=== PATIENT | male | born 1975 | race Caucasian/White ===

== ENCOUNTER 2016-10-23 23:49 | Inpatient (IN) | payer MEDICAID ==
[~2016-10-23] VITALS: Ht 195.6 cm; Wt 69.0 kg
[2016-10-24] VITALS (18 sets, daily range): BP systolic 102–117; BP diastolic 72–82; PULSE 56–77; RESP 9–21; TEMP 98.9; Ht 195.6 cm; Wt 69.0 kg
[2016-10-24] MEDS ORDERED: SOD CHLORIDE 0.9% 1,000 ML IV STA (02:35)
[2016-10-24] MEDS ORDERED: morphine 2 MG INJ IV STA (02:35)
[2016-10-24] MEDS ORDERED: ONDANSETRON 4 MG INJ IV STA (02:35)
[2016-10-24 03:22] LABS: ABNORMAL IP MESSAGE 1; BASOPHILS % 0.5 % (0.0-2.0); EOSINOPHILS # 0.1 10^3/ul (0.0-0.5); EOSINOPHILS % 1.3 % (0.0-7.0); HEMATOCRIT 45.9 % (42.0-52.0); LYMPHOCYTES # 2.5 10^3/ul (0.8-2.9); LYMPHOCYTES % 30.2 % (15.0-51.0); MEAN CORPUSCULAR HGB CONC 34.9 g/dl (32.0-37.0); MEAN CORPUSCULAR VOLUME 83.2 fl (82.0-101.0); MEAN PLATELET VOLUME 13.7 fl (7.4-10.4); MONOCYTE # 0.6 10^3/ul (0.3-0.9); NEUTROPHILS % 60.5 % (39.0-77.0); PLATELET COUNT 189 10^3/UL (140-415); POSITIVE DIFF @See below; RED BLOOD COUNT 5.52 10^6/ul (4.70-6.10); RED CELL DISTRIBUTION WIDTH 12.3 % (11.5-14.5); WHITE BLOOD COUNT 8.2 10^3/ul (4.8-10.8)
[2016-10-24 03:29] LABS: ADD UMIC NO; UR ASCORBIC ACID NEGATIVE (NEGATIVE); UR BILIRUBIN (Dip) NEGATIVE (NEGATIVE); UR BLOOD (Dip) NEGATIVE (NEGATIVE); UR CLARITY CLEAR (CLEAR); UR COLOR COLORLESS (YELLOW); UR GLUCOSE (Dip) 3+ mg/dL (NEGATIVE); UR KETONES (Dip) 2+ mg/dL (NEGATIVE); UR LEUKOCYTE ESTERASE (Dip) NEGATIVE Leu/ul (NEGATIVE); UR NITRITE (Dip) NEGATIVE (NEGATIVE); UR TOTAL PROTEIN (Dip) NEGATIVE (NEGATIVE); UR UROBILINOGEN (Dip) NEGATIVE (NEGATIVE)
[2016-10-24 03:34] LABS: UR BACTERIA MANY /HPF (NONE SEEN); UR MUCUS MANY /HPF (NONE SEEN); UR RBC 11 /HPF (0-5); UR SQUAMOUS EPITHELIAL CELL FEW /HPF (FEW)
[2016-10-24 04:19] LABS: ALBUMIN 4.8 g/dl (3.3-4.9); ALBUMIN/GLOBULIN RATIO 1.26; BILIRUBIN,INDIRECT 0.5 mg/dl (0-1.1); BILIRUBIN,TOTAL 0.5 mg/dl (0.2-1.3); CALCIUM 10.2 mg/dl (8.4-10.2); CREATININE 0.74 mg/dl (0.61-1.24); POTASSIUM 4.4 mmol/L (3.5-5.1); TOTAL PROTEIN 8.6 g/dl (6.1-8.1)
[2016-10-24] MEDS ORDERED: SOD CHLORIDE 0.9% 1,000 ML IV ONE (05:00)
[2016-10-24] MEDS ORDERED: CEFEPIME 1GM/50 ML (PMX) 50 ML ONE (05:10)
[2016-10-24] MEDS ORDERED: CEFEPIME 1GM/50 ML (PMX) 50 ML IVPB ONE (05:30)
--- NOTE | 2016-10-24 07:16 | ERA ---
ER Documentation Chief Complaint Date/Time DATE: 10/24/16 TIME: 07:13 Chief Complaint AP, INCREASED N/V X1 WEEK DENIES DIARRHEA HPI . .This 41-year-old male presents with increasing nausea vomiting for a week. Mild abdominal pain is in the mid abdomen. Is also been losing weight lately. He is to be without intending to. ROS All systems reviewed and are negative except as per history of present illness. Allergies Allergies: Coded Allergies: No Known Allergies (Unverified Allergy, Unknown, 10/24/16) PMhx/Soc Medical and Surgical Hx: pt denies Medical Hx, pt denies Surgical Hx History of Surgery: No Anesthesia Reaction: No Hx Neurological Disorder: No Hx Respiratory Disorders: No Hx Cardiac Disorders: No Hx Psychiatric Problems: No Hx Miscellaneous Medical Probl: No Hx Alcohol Use: No Hx Substance Use: No Hx Tobacco Use: No Smoking Status: Never smoker Physical Exam Vitals Vital Signs Date Time Temp Pulse Resp B/P Pulse Ox O2 Delivery O2 Flow Rate FiO2 10/24/16 04:12 98.9 60 14 112/78 100 Room Air 10/24/16 02:16 98.6 80 14 134/92 100 Room Air 10/24/16 00:11 97.3 72 18 137/92 99 Physical Exam Const: [] Head: Atraumatic Eyes: Normal Conjunctiva ENT: Normal External Ears, Nose and Mouth. Neck: Full range of motion..~ No meningismus. Resp: Clear to auscultation bilaterally Cardio: Regular rate and rhythm, no murmurs Abd: Soft, non tender, non distended. Normal bowel sounds Skin: No petechiae or rashes Back: No midline or flank tenderness Ext: No cyanosis, or edema Neur: Awake and alert Psych: Normal Mood and Affect Result Diagram: 10/24/16 0242 10/24/16 0242 Results 24 hrs Laboratory Tests Test 10/24/16 02:42 10/24/16 06:22 White Blood Count 8.210^3/ul Red Blood Count 5.5210^6/ul Hemoglobin 16.0g/dl Hematocrit 45.9% Mean Corpuscular Volume 83.2fl Mean Corpuscular Hemoglobin 29.0pg Mean Corpuscular Hemoglobin Concent 34.9g/dl Red Cell Distribution Width 12.3% Platelet Count 14703^3/UL Mean Platelet Volume 13.7fl Neutrophils % 60.5% Lymphocytes % 30.2% Monocytes % 7.0% Eosinophils % 1.3% Basophils % 0.5% Nucleated Red Blood Cells % 0.0/100WBC Neutrophils # (Manual) 5.010^3/ul Lymphocytes # 2.510^3/ul Monocytes # 0.610^3/ul Eosinophils # 0.110^3/ul Basophils # 0.010^3/ul Nucleated Red Blood Cells # 0.010^3/ul Urine Color COLORLESS Urine Clarity CLEAR Urine pH 5.0 Urine Specific [place] 1.030 Urine Ketones 2+mg/dL Urine Nitrite NEGATIVEmg/dL Urine Bilirubin NEGATIVEmg/dL Urine Urobilinogen NEGATIVEmg/dL Urine Leukocyte Esterase NEGATIVELeu/ul Urine Microscopic RBC 11/HPF Urine Microscopic WBC 75/HPF Urine Squamous Epithelial Cells FEW/HPF Urine Bacteria MANY/HPF Urine Mucus MANY/HPF Urine Hemoglobin NEGATIVEmg/dL Urine Glucose 3+mg/dL Urine Total Protein NEGATIVEmg/dl Sodium Level 136mmol/L Potassium Level 4.4mmol/L Chloride Level 96mmol/L Carbon Dioxide Level 21mmol/L Anion Gap 23 Blood Urea Nitrogen 15mg/dl Creatinine 0.74mg/dl Glucose Level 583mg/dl Calcium Level 10.2mg/dl Total Bilirubin 0.5mg/dl Direct Bilirubin 0.00mg/dl Indirect Bilirubin 0.5mg/dl Aspartate Amino Transf (AST/SGOT) 27IU/L Alanine Aminotransferase (ALT/SGPT) 53IU/L Alkaline Phosphatase 257IU/L Total Protein 8.6g/dl Albumin 4.8g/dl Globulin 3.80g/dl Albumin/Globulin Ratio 1.26 Lipase 197U/L Bedside Glucose 291mg/dL Current Medications Medications (Trade) Dose Ordered Sig/Shante Route PRN Reason Start Time Stop Time Status Last Admin Dose Admin Sodium Chloride (NS) 1,000 ml @ 1,000 mls/hr Q1H STAT IV 10/24/16 02:35 10/24/16 03:34 DC 10/24/16 02:47 Morphine Sulfate (morphine) 2 mg ONCE STAT IV 10/24/16 02:35 10/24/16 02:36 DC 10/24/16 02:46 Ondansetron HCl 4 mg 4 mg ONCE STAT IV 10/24/16 02:35 10/24/16 02:36 DC 10/24/16 02:47 Sodium Chloride 1,000 ml @ 1,000 mls/hr Q1H ONCE IV 10/24/16 05:00 10/24/16 05:00 DC 10/24/16 05:02 Cefepime HCl 50 ml @ 100 mls/hr ONCE ONCE IVPB 10/24/16 05:30 10/24/16 05:59 DC 10/24/16 06:05 Cefepime HCl (Maxipime 1gm/50 ml (Pmx)) 50 ml @ STK-MED ONCE .ROUTE 10/24/16 05:10 10/24/16 05:11 DC Procedures/MDM New onset diabetes with conspicuous male urinary tract infection. Patient sugar is extremely elevated. Was given 2 L of fluid which did help lower the sugar. Nausea was decreased with Zofran. This patient sugar was so extremely high patient is on no medications will need to be admitted for severe hyperglycemia and a previously undiagnosed diabetic male with rapid weight loss.No signs of DKA.Was given a gram of cefepime IV. Departure Diagnosis: Primary Impression: New onset type 2 diabetes mellitus Additional Impression: Severe diabetic hypoglycemia Condition: Stable JACQUELINE MERCHANT DO Oct 24, 2016 07:16
[2016-10-24] MEDS ORDERED: SOD CHLORIDE 0.9% 1,000 ML IV SCH ×2 (09:28→11:28)
[2016-10-24] MEDS ORDERED: NACL 0.9% 3 ML SYG IV SCH (09:30)
[2016-10-24] MEDS ORDERED: DEXTROSE 50% 50 ML SYRINGE IV PRN ×6 (09:30→17:30)
[2016-10-24] MEDS ORDERED: ACETAMINOPHEN 650 MG SUPP PR PRN (09:30)
[2016-10-24] MEDS ORDERED: ONDANSETRON 4 MG INJ IV PRN (09:30)
[2016-10-24] MEDS ORDERED: HYDROCODONE/APAP (5/325) TAB PO PRN ×2 (09:30)
[2016-10-24] MEDS: ACCU-CHEK XX SCH ×15 (09:30→23:24)
[2016-10-24] MEDS ORDERED: ACETAMINOPHEN 325 MG TAB PO PRN (09:30)
[2016-10-24] MEDS ORDERED: INSULIN HUMAN REGULAR 100 UNIT in SOD CHLORIDE 0.9% 99 ML IV SCH ×2 (09:30→13:00)
[2016-10-24] MEDS ORDERED: BISACODYL 10 MG SUPP PR PRN (09:30)
[2016-10-24] MEDS ORDERED: DOCUSATE SODIUM 100 MG CAP PO PRN (09:30)
[2016-10-24] MEDS ORDERED: MAGNESIUM HYDROXIDE 30ML CUP PO PRN (09:30)
[2016-10-24] MEDS ORDERED: morphine 2 MG INJ IV PRN (09:30)
[2016-10-24] MEDS ORDERED: LACTATED RINGER'S 1,000 ML IV SCH (10:28)
[2016-10-24 12:44] LABS: CALCIUM 8.8 mg/dl (8.4-10.2); CREATININE 0.67 mg/dl (0.61-1.24); POTASSIUM 4.1 mmol/L (3.5-5.1)
--- NOTE | 2016-10-24 12:53 | CONS ---
Date/Time of Note Date/Time of Note DATE: 10/24/16 TIME: 12:41 Assessment/Plan Assessment/Plan Problems: (1) Abnormal finding on urinalysis Status: Acute Comment: Patient has had something is set this off. Urinalysis is abnormal. Unfortunately he is artery been given antibiotics before any cultures were ordered. I will try and salvage this but in the meantime he will need to be on antibiotics and watch her follow this up. In addition I will also order blood cultures although we have the same pitfall about the antibiotics (2) New onset type 2 diabetes mellitus Status: Acute Comment: Whether or not this is type 2 diabetes with pancreatic beta cell insufficiency or is purely type II is yet to be determined. Clearly not in diabetic ketoacidosis. However with the presentation with a weight loss one wonders whether or not he could be a latent autoimmune diabetes of adulthood and losing pancreatic reserves. For now we will get him out of hyperglycemia and stabilized and then determin. Consultation Date/Type/Reason Admit Date/Time Oct 24, 2016 at 10:01 Date of Consultation: Oct 24, 2016 Type of Consultation: Endocrinology Reason for Consultation New onset diabetes without DKA Referring Provider: ALTA HYMAN Hx of Present Illness Previously healthy 41-year-old [place] gentleman admitted to the hospital. He reports over the last 3 weeks he has had a weight loss unintended of at least 2 pounds week. In addition to this he has had some urinary tract pain with dysuria. He also has noticed polyuria and nocturia. Denies any nausea or vomiting he denies any fevers chills or sweats has any cough wheezing or dyspnea. He reports he does have bad teeth. His forced him to come the emergency room was found to have hyperglycemia. Please note his labs indicate a normal serum bicarbonate. Constitutional: no complaints (Eyes fevers chills or sweats but does have weight loss) Eyes: visual change (Notes some distance vision blurriness) ENT: other (Negative except for some teeth pain) Respiratory: no complaints Cardiovascular: no complaints Gastrointestinal: no complaints Genitourinary: dysuria, other (frequncy and nocturia) Musculoskeletal: no complaints Skin: no complaints Neurologic: no complaints Endocrine: other (Weight loss), polydypsia, polyuria Lymphatic: no complaints Psychological: nl mood/affect, no complaints Immunologic: no complaints Past Medical History Medical History: no pertinent history Past Surgical History Past Surgical Hx: no surgical history Family History Significant Family History: diabetes Social History Alcohol Use: none Smoking Status: Never smoker Drug Use: none Other Social History Born in [facility] and raised. Has high school education. Lives in [place] for last 20 years. lives with his spouse Exam/Review of Systems Vital Signs Vitals Vital Signs Date Time Temp Pulse Resp B/P Pulse Ox O2 Delivery O2 Flow Rate FiO2 10/24/16 11:35 65 14 106/62 100 Room Air 10/24/16 04:12 98.9 Exam Constitutional: alert, oriented Head: atraumatic, normocephalic Eyes: EOMI, nl conjunctiva, nl lids, nl sclera ENMT: mucosa pink and moist, nl external ears & nose, nl lips & teeth, nl nasal mucosa & septum Neck: non-tender, supple Respiratory: clear to auscultation, normal air movement Cardiovascular: nl pulses, regular rate and rhythm Gastrointestinal: nl liver, spleen, non-tender, soft Musculoskeletal: nl extremities to inspection, nl gait and stance Extremities: normal pulses 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, nl mental status, nl speech, nl strength Results Result Diagram: 10/24/16 0242 10/24/16 0242 Results 24 hrs Laboratory Tests Test 10/24/16 02:42 10/24/16 06:22 10/24/16 11:44 White Blood Count 8.2 Red Blood Count 5.52 Hemoglobin 16.0 Hematocrit 45.9 Mean Corpuscular Volume 83.2 Mean Corpuscular Hemoglobin 29.0 Mean Corpuscular Hemoglobin Concent 34.9 Red Cell Distribution Width 12.3 Platelet Count 189 Mean Platelet Volume 13.7 H Neutrophils % 60.5 Lymphocytes % 30.2 Monocytes % 7.0 Eosinophils % 1.3 Basophils % 0.5 Nucleated Red Blood Cells % 0.0 Neutrophils # (Manual) 5.0 Lymphocytes # 2.5 Monocytes # 0.6 Eosinophils # 0.1 Basophils # 0.0 Nucleated Red Blood Cells # 0.0 Urine Color COLORLESS Urine Clarity CLEAR Urine pH 5.0 Urine Specific [place] 1.030 Urine Ketones 2+ H Urine Nitrite NEGATIVE Urine Bilirubin NEGATIVE Urine Urobilinogen NEGATIVE Urine Leukocyte Esterase NEGATIVE Urine Microscopic RBC 11 H Urine Microscopic WBC 75 H Urine Squamous Epithelial Cells FEW Urine Bacteria MANY A Urine Mucus MANY A Urine Hemoglobin NEGATIVE Urine Glucose 3+ H Urine Total Protein NEGATIVE Sodium Level 136 Potassium Level 4.4 Chloride Level 96 L Carbon Dioxide Level 21 Anion Gap 23 H Blood Urea Nitrogen 15 Creatinine 0.74 Glucose Level 583 *H Hemoglobin A1c Calcium Level 10.2 Total Bilirubin 0.5 Direct Bilirubin 0.00 Indirect Bilirubin 0.5 Aspartate Amino Transf (AST/SGOT) 27 Alanine Aminotransferase (ALT/SGPT) 53 Alkaline Phosphatase 257 H Total Protein 8.6 H Albumin 4.8 Globulin 3.80 H Albumin/Globulin Ratio 1.26 Lipase 197 Bedside Glucose 291 H 250 H Medications Medications Current Medications Ondansetron HCl (Zofran Inj) 4 mg Q6H PRN IV NAUSEA AND/OR VOMITING; Start 10/24 at 09:30 Acetaminophen (Tylenol Tab) 650 mg Q6H PRN PO PAIN LEVEL 1-3 OR FEVER; Start at 09:30 Acetaminophen (Tylenol Supp) 650 mg Q6H PRN [place] PAIN LEVEL 1-3 OR FEVER; Start 10/24/16 at 09:30 Acetaminophen/ Hydrocodone Bitart ([place] (5/325)) 1 tab Q6H PRN PO MODERATE PAIN LEVEL 4-6; Start 10/24/16 at 09:30 Acetaminophen/ Hydrocodone Bitart ([place] (5/325)) 2 tab Q6H PRN PO SEVERE PAIN LEVEL 7-10; Start 10/24/16 at 09:30 Morphine Sulfate (morphine) 2 mg Q4H PRN IV SEVERE PAIN LEVEL 7-10; Start at 09:30 Docusate Sodium (Colace) 100 mg Q12H PRN PO CONSTIPATION; Start 10/24/16 at 09: 30 Magnesium Hydroxide (Milk Of Mag) 30 ml DAILY PRN PO CONSTIPATION; Start at 09:30 Bisacodyl (Dulcolax Supp) 10 mg DAILY PRN [place] CONSTIPATION; Start 10/24/16 at 09: 30 Pantoprazole (Protonix Iv) 40 mg DAILY@06 IV ; Start 10/25/16 at 06:00 Dextrose (D50w Syringe) 50 ml Q15M PRN IV For BS 50 or less; Start 10/24/16 at 09:30 Dextrose 25 ml 25 ml Q15M PRN IV BS between 50-70; Start 10/24/16 at 09:30 Sodium Chloride (NS) 1,000 ml @ 500 mls/hr Q2H IV Last administered on 11:28; Admin Dose 500 MLS/HR; Start 10/24/16 at 11:28; Stop 10/24/16 at 15:27 Diagnostic Test (Pha) (Accu-Chek) 1 ea Q1H XX Last administered on 10/24/16 11: 55; Admin Dose 1 EA; Start 10/24/16 at 09:30 JACQUELINE HANNA MD Oct 24, 2016 12:52
--- NOTE | 2016-10-24 16:13 | HP ---
Date/Time of Note Date/Time of Note DATE: 10/24/16 TIME: 15:55 Assessment/Plan VTE Prophylaxis VTE Prophylaxis Intervention: SCD's Assessment/Plan Chief Complaint/Hosp Course Impression and plan 1. New onset type 2 diabetes. Of note, patient with initial glucose of 583 and anion gap of 23 with ketonuria seen in urinalysis. Labs with suspicion for DKA (as per diagnostic criteria in UpToDate). [employer] following. continue with endocrinolgy insulin regimen. A1c noted at 13.9 2. Urinalysis with suspicion for possible UTI. Leukocyte esterase and urine nitrite test negative. However many bacteria seen per urinalysis. Possibility of contamination. Was given cefepime in the ER. Follow-up on urine culture. 3. transaminitis. Follow-up on etiology unclear. Hepatitis screening negative. Follow-up on LFT. Admission process 40 minutes Discussed plan of care with Dr. Elliott Problems: HPI/ROS Admit Date/Time Admit Date/Time Oct 24, 2016 at 10:01 Hx of Present Illness This is a 41-year-old male with no reported past medical history who came to [facility] after reporting having 2 weeks of nausea with the past 2 days up to admission having some vomiting as well nonbilious nonbloody. She reported prior to admission he denied any subjective fevers or dysuria or any shortness of breath or coughing or any sick contacts. He only reported having nausea as primary symptom. He subsequently went to [facility] for further evaluation. Upon further examination he was seen with initial glucose of 583 with anion gap of 23. On urinalysis he did have negative leukocyte esterase test as well as urine nitrite test. He did show some bacteria but suspect this may be contamination. There was seen 2+ ketones in the urine. He remained afebrile with no elevation in white count. We will evaluate him for the aformentiond issues. ROS 12 point review of systems obtained and entirely negative except that mentioned in the history present illness Eyes: visual change (Notes some distance vision blurriness) ENT: other (Negative except for some teeth pain) Respiratory: no complaints Cardiovascular: no complaints Gastrointestinal: no complaints Genitourinary: dysuria, other (frequncy and nocturia) Musculoskeletal: no complaints Skin: no complaints Neurologic: no complaints Lymphatic: no complaints Psychological: nl mood/affect, no complaints Immunologic: no complaints PMH/Family/Social Past Medical History Medical History: no pertinent history Past Surgical History Past Surgical Hx: no surgical history Social History Alcohol Use: none Smoking Status: Never smoker Drug Use: none Exam/Review of Systems Vital Signs Vitals Vital Signs Date Time Temp Pulse Resp B/P Pulse Ox O2 Delivery O2 Flow Rate FiO2 10/24/16 13:45 97.9 61 14 105/75 96 Room Air Exam Constitutional: alert, oriented Psych: no complaints Head: normocephalic Eyes: nl conjunctiva Respiratory: clear to auscultation, normal air movement Cardiovascular: regular rate and rhythm Gastrointestinal: soft Musculoskeletal: nl extremities to inspection 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, nl mental status, nl speech Skin: nl turgor Labs Result Diagram: 10/24/16 0242 10/24/16 1207 Medications Medications Current Medications Ondansetron HCl (Zofran Inj) 4 mg Q6H PRN IV NAUSEA AND/OR VOMITING; Start 10/24 at 09:30 Acetaminophen (Tylenol Tab) 650 mg Q6H PRN PO PAIN LEVEL 1-3 OR FEVER; Start at 09:30 Acetaminophen (Tylenol Supp) 650 mg Q6H PRN [place] PAIN LEVEL 1-3 OR FEVER; Start 10/24/16 at 09:30 Acetaminophen/ Hydrocodone Bitart ([place] (5/325)) 1 tab Q6H PRN PO MODERATE PAIN LEVEL 4-6; Start 10/24/16 at 09:30 Acetaminophen/ Hydrocodone Bitart ([place] (5/325)) 2 tab Q6H PRN PO SEVERE PAIN LEVEL 7-10; Start 10/24/16 at 09:30 Morphine Sulfate (morphine) 2 mg Q4H PRN IV SEVERE PAIN LEVEL 7-10; Start at 09:30 Docusate Sodium (Colace) 100 mg Q12H PRN PO CONSTIPATION; Start 10/24/16 at 09: 30 Magnesium Hydroxide (Milk Of Mag) 30 ml DAILY PRN PO CONSTIPATION; Start at 09:30 Bisacodyl (Dulcolax Supp) 10 mg DAILY PRN [place] CONSTIPATION; Start 10/24/16 at 09: 30 Pantoprazole (Protonix Iv) 40 mg DAILY@06 IV ; Start 10/25/16 at 06:00 Diagnostic Test (Pha) (Accu-Chek) 1 ea Q1H XX Last administered on 10/24/16t 15: 54; Admin Dose 1 EA; Start 10/24/16 at 13:00 Dextrose (D50w Syringe) 25 ml Q15M PRN IV Till BS 80 mg/dL or above x2; Start 10/24/16 at 13:00 Dextrose (D50w Syringe) 50 ml Q15M PRN IV Till BS 80 mg/dL or above x2; Start 10/24/16 at 13:00 ALTA HYMAN Oct 24, 2016 16:10
[2016-10-24] MEDS ORDERED: GLUCAGON 1 MG INJ IM PRN (17:30)
[2016-10-24] MEDS ORDERED: GLUCOSE GEL 15 GRAM TUBE PO PRN ×2 (17:30)
[2016-10-24] MEDS ORDERED: GLUCOSE GEL 15 GRAM TUBE BUCCAL PRN (17:30)
[2016-10-24 17:37] LABS: CALCIUM 8.7 mg/dl (8.4-10.2); CREATININE 0.68 mg/dl (0.61-1.24); POTASSIUM 3.7 mmol/L (3.5-5.1)
[2016-10-24] MEDS: INSULIN ASPART [NOVOLOG] 3 ML PEN SC SCH ×2 (18:23→21:08)
[2016-10-24] MEDS: INSULIN GLARGINE [LANtus] 3 ML PEN SC SCH (19:55)
[2016-10-25] VITALS (14 sets, daily range): BP systolic 87–120; BP diastolic 56–97; PULSE 54–78; RESP 12–22
[2016-10-25] MEDS: ACCU-CHEK XX SCH ×3 (00:01→01:59)
[2016-10-25] MEDS ORDERED: PANTOPRAZOLE 40 MG INJ IV SCH (06:00)
[2016-10-25 06:40] LABS: ALBUMIN 3.2 g/dl (3.3-4.9); ALBUMIN/GLOBULIN RATIO 1.14; BILIRUBIN,INDIRECT 0.3 mg/dl (0-1.1); BILIRUBIN,TOTAL 0.3 mg/dl (0.2-1.3); CHOL/HDL RATIO 3.2 RATIO; CREATININE 0.59 mg/dl (0.61-1.24); MAGNESIUM 1.7 mg/dl (1.7-2.5); PHOSPHORUS 3.6 mg/dl (2.5-4.9)
[2016-10-25 06:56] LABS: T3 UPTAKE 39.4 % (23.5-40.5)
[2016-10-25 07:09] LABS: THYROID STIMULATING HORMONE 0.988 MIU/L (0.465-4.680)
--- NOTE | 2016-10-25 07:29 | PN ---
Date/Time of Note Date/Time of Note DATE: 10/25/16 TIME: 07:27 Assessment/Plan VTE Prophylaxis VTE Prophylaxis Intervention: heparin Lines/Catheters IV [facility] Peripheral IV Urinary Cath still in place: No Assessment/Plan Chief Complaint/Hosp Course Previously healthy 41-year-old [place] gentleman admitted to the hospital. He reports over the last 3 weeks he has had a weight loss unintended of at least 2 pounds week. In addition to this he has had some urinary tract pain with dysuria. He also has noticed polyuria and nocturia. Denies any nausea or vomiting he denies any fevers chills or sweats has any cough wheezing or dyspnea. He reports he does have bad teeth. His forced him to come the emergency room was found to have hyperglycemia. Please note his labs indicate a normal serum bicarbonate. Problems: (1) New onset type 2 diabetes mellitus Status: Acute Comment: His blood sugar control has come into line nicely with a relatively straightforward medication. Given the A1c above 13 and this is very likely to be type 2 diabetes that set it off i.e. had some type of instigating event such as a smoldering infection. This could either be a dental source or a smoldering prostatitis. Primary care team is investigating. All cultures are still negative as of this time unfortunately there were obtained after the emergency department gave antibiotics. For now he can be transferred out of the ICU to a nonmonitored floor and started on an educational system as well as oral agents in combination with his insulin. (2) Abnormal finding on urinalysis Status: Acute Comment: Pending cultures. If the cultures are negative I would repeat the UA and also perform a very detailed prostate exam by the primary team to determine if this was possibly the source Subjective 24 Hr Interval Summary Free Text/Dictation Patient is feeling significantly better today. He reports no nausea or vomiting etc. Constitutional: no complaints (Fevers chills or sweats) Respiratory: no complaints (Shortness of breath) Cardiovascular: no complaints Gastrointestinal: no complaints Genitourinary: no complaints Exam/Review of Systems Vital Signs Vitals Vital Signs Date Time Temp Pulse Resp B/P Pulse Ox O2 Delivery O2 Flow Rate FiO2 10/25/16 06:00 60 19 90/59 96 Room Air 10/25/16 04:00 97.9 Intake and Output 10/24/16 10/24/16 10/25/16 14:59 22:59 06:59 Intake Total 2001 ml 114 ml 152 ml Output Total 500 ml 375 ml Balance 2001 ml -386 ml -223 ml Exam Constitutional: alert, oriented Neck: non-tender, supple Respiratory: clear to auscultation, normal air movement Cardiovascular: nl pulses, regular rate and rhythm Gastrointestinal: nl liver, spleen, non-tender, soft Results Result Diagram: 10/24/16 0242 10/25/16 0525 Results 24 hrs Laboratory Tests Test 10/24/16 11:44 10/24/16 12:00 10/24/16 12:07 10/24/16 12:41 Bedside Glucose 250 H 237 H Urine Ketones 2+ H Sodium Level 137 Potassium Level 4.1 Chloride Level 102 Carbon Dioxide Level 21 Anion Gap 18 H Blood Urea Nitrogen 11 Creatinine 0.67 Glucose Level 259 #H Hemoglobin A1c 13.9 H Calcium Level 8.8 Phosphorus Level 3.3 Test 10/24/16 14:54 10/24/16 15:50 10/24/16 16:50 10/24/16 18:02 Bedside Glucose 215 199 134 Sodium Level 140 Potassium Level 3.7 Chloride Level 105 Carbon Dioxide Level 25 Anion Gap 14 Blood Urea Nitrogen 11 Creatinine 0.68 Glucose Level 161 Calcium Level 8.7 Test 10/24/16 19:49 10/24/16 21:04 10/24/16 22:12 10/24/16 23:25 Bedside Glucose 214 201 169 212 Test 10/25/16 00:00 10/25/16 01:59 10/25/16 04:56 10/25/16 05:25 Bedside Glucose 251 H 191 184 Sodium Level 136 Potassium Level 4.0 Chloride Level 103 Carbon Dioxide Level 26 Anion Gap 11 Blood Urea Nitrogen 15 Creatinine 0.59 L Glucose Level 182 Hemoglobin A1c 13.2 H Calcium Level 9.0 Phosphorus Level 3.6 Magnesium Level 1.7 Total Bilirubin 0.3 Direct Bilirubin 0.00 Indirect Bilirubin 0.3 Aspartate Amino Transf (AST/SGOT) 29 Alanine Aminotransferase (ALT/SGPT) 51 Alkaline Phosphatase 102 # Total Protein 6.0 #L Albumin 3.2 #L Globulin 2.80 Albumin/Globulin Ratio 1.14 Triglycerides Level 98 Cholesterol Level 114 LDL Cholesterol, Calculated 59 HDL Cholesterol 35 Cholesterol/HDL Ratio 3.2 Thyroid Stimulating Hormone (TSH) 0.988 Free Thyroxine Index 2.92 Thyroxine (T4) 7.4 Triiodothyronine (T3) Uptake 39.4 Medications Medications Current Medications Ondansetron HCl (Zofran Inj) 4 mg Q6H PRN IV NAUSEA AND/OR VOMITING; Start 10/24 at 09:30 Acetaminophen (Tylenol Tab) 650 mg Q6H PRN PO PAIN LEVEL 1-3 OR FEVER; Start at 09:30 Acetaminophen (Tylenol Supp) 650 mg Q6H PRN [place] PAIN LEVEL 1-3 OR FEVER; Start 10/24/16 at 09:30 Acetaminophen/ Hydrocodone Bitart ([place] (5/325)) 1 tab Q6H PRN PO MODERATE PAIN LEVEL 4-6; Start 10/24/16 at 09:30 Acetaminophen/ Hydrocodone Bitart ([place] (5/325)) 2 tab Q6H PRN PO SEVERE PAIN LEVEL 7-10; Start 10/24/16 at 09:30 Morphine Sulfate (morphine) 2 mg Q4H PRN IV SEVERE PAIN LEVEL 7-10; Start at 09:30 Docusate Sodium (Colace) 100 mg Q12H PRN PO CONSTIPATION; Start 10/24/16 at 09: 30 Magnesium Hydroxide (Milk Of Mag) 30 ml DAILY PRN PO CONSTIPATION; Start at 09:30 Bisacodyl (Dulcolax Supp) 10 mg DAILY PRN [place] CONSTIPATION; Start 10/24/16 at 09: 30 Pantoprazole (Protonix Iv) 40 mg DAILY@06 IV Last administered on 10/25/16 06: 29; Admin Dose 40 MG; Start 10/25/16 at 06:00 Dextrose (D50w Syringe) 25 ml Q15M PRN IV Till BS 80 mg/dL or above x2; Start 10/24/16 at 13:00 Dextrose (D50w Syringe) 50 ml Q15M PRN IV Till BS 80 mg/dL or above x2; Start 10/24/16 at 13:00 Insulin Glargine (Lantus) 26 unit DAILY@20 [place] Last administered on 10/24/16 19: 55; Admin Dose 26 UNIT; Start 10/24/16 at 20:00 Miscellaneous Information 1 ea NOTE XX ; Start 10/24/16 at 17:30 Glucose (Glutose) 15 gm Q15M PRN PO DECREASED GLUCOSE; Start 10/24/16 at 17:30 Glucose (Glutose) 22.5 gm Q15M PRN PO DECREASED GLUCOSE; Start 10/24/16 at 17:30 Dextrose (D50w Syringe) 25 ml Q15M PRN IV DECREASED GLUCOSE; Start 10/24/16 at 17:30 Dextrose (D50w Syringe) 50 ml Q15M PRN IV DECREASED GLUCOSE; Start 10/24/16 at 17:30 Glucagon (Glucagen) 1 mg Q15M PRN IM DECREASED GLUCOSE; Start 10/24/16 at 17:30 Glucose (Glutose) 15 gm Q15M PRN [place] DECREASED GLUCOSE; Start 10/24/16 at 17: 30 Diagnostic Test (Pha) (Accu-Chek) 1 ea 02 XX Last administered on 10/25/16 01: 59; Admin Dose 1 EA; Start 10/25/16 at 02:00 Diagnostic Test (Pha) (Accu-Chek) 1 ea 02 XX Last administered on 10/25/16 01: 59; Admin Dose 1 EA; Start 10/25/16 at 02:00 JACQUELINE HANNA MD Oct 25, 2016 07:29
[2016-10-25] MEDS: INSULIN ASPART [NOVOLOG] 3 ML PEN SC SCH ×7 (07:35→20:30)
[2016-10-25] MEDS: metFORMIN 500 MG TAB PO SCH ×2 (07:35→18:09)
--- NOTE | 2016-10-25 09:49 | PN ---
Date/Time of Note Date/Time of Note DATE: 10/25/16 TIME: 09:48 Assessment/Plan VTE Prophylaxis VTE Prophylaxis Intervention: SCD's Lines/Catheters IV Catheter Type (from [facility]): Peripheral IV Urinary Cath still in place: No Assessment/Plan Chief Complaint/Hosp Course 1. New onset diabetes mellitus. Most probably type II. Continue sliding scale insulin. The patient being followed by endocrinology. Patient was started on metformin. The patient had findings suggestive of DKA upon admission. However, as per endocrinology the patient was not in any DKA. Hence , the patient was not started on any insulin drip. Hemoglobin A1c 13.2. 2. Transaminitis. Resolved. 3. Positive urinalysis. Urine microscopic WBC of 75. The patient remains afebrile. Urine cultures pending. 4. Fluids, electrolytes, and nutrition. Carbohydrate controlled diet. 5. DVT prophylaxis. Sequential compression devices. 6. Gastrointestinal prophylaxis. Histamine 2 receptor blockers. 7. Plan. Continue diabetes management as per endocrinology. The patient will be transferred out of the intensive care unit. Case discussed with Dr. Bernard. Critical care time: 35 minutes. Problems: Subjective 24 Hr Interval Summary Free Text/Dictation Denies any complaints. The patient's blood pressure remains on the lower side. Exam/Review of Systems Vital Signs Vitals Vital Signs Date Time Temp Pulse Resp B/P Pulse Ox O2 Delivery O2 Flow Rate FiO2 10/25/16 07:00 59 15 106/79 96 Room Air 10/25/16 04:00 97.9 Intake and Output 10/24/16 10/24/16 10/25/16 14:59 22:59 06:59 Intake Total 2000 ml 114 ml 152 ml Output Total 500 ml 375 ml Balance 2000 ml -386 ml -223 ml Exam General: Adequately build 41 year-old male lying in bed in no apparent distress. HEENT: Normocephalic, atraumatic. Eyes: Anicteric sclerae, conjunctivae clear. ENT: Nasal septum midline, oral mucosa moist. Neck supple, no JVD noticed. Respiratory: Bilaterally clear breath sounds. No use of accessory muscles of respiration. No adventitious breath sounds. Cardiovascular: S1, S2 heard. No murmurs or gallops. Abdomen: Soft, nontender, and nondistended. Bowel sounds positive in all 4 quadrants. Genitourinary: Deferred. Extremities: No cyanosis, no clubbing, no edema. Peripheral pulses palpable. Neurologic: Cranial nerves II through XII grossly intact. The patient is awake, alert, and oriented. Skin: Normal skin turgor. No skin rashes. Results Result Diagram: 10/24/16 0242 10/25/16 0525 Results 24 hrs Laboratory Tests Test 10/24/16 11:44 10/24/16 12:00 10/24/16 12:07 10/24/16 12:41 Bedside Glucose 250 H 237 H Urine Ketones 2+ H Sodium Level 137 Potassium Level 4.1 Chloride Level 102 Carbon Dioxide Level 21 Anion Gap 18 H Blood Urea Nitrogen 11 Creatinine 0.67 Glucose Level 259 #H Hemoglobin A1c 13.9 H Calcium Level 8.8 Phosphorus Level 3.3 Test 10/24/16 14:54 10/24/16 15:50 10/24/16 16:50 10/24/16 18:02 Bedside Glucose 215 199 134 Sodium Level 140 Potassium Level 3.7 Chloride Level 105 Carbon Dioxide Level 25 Anion Gap 14 Blood Urea Nitrogen 11 Creatinine 0.68 Glucose Level 161 Calcium Level 8.7 Test 10/24/16 19:49 10/24/16 21:04 10/24/16 22:12 10/24/16 23:25 Bedside Glucose 214 201 169 212 Test 10/25/16 00:00 10/25/16 01:59 10/25/16 04:56 10/25/16 05:25 Bedside Glucose 251 H 191 184 Sodium Level 136 Potassium Level 4.0 Chloride Level 103 Carbon Dioxide Level 26 Anion Gap 11 Blood Urea Nitrogen 15 Creatinine 0.59 L Glucose Level 182 Hemoglobin A1c 13.2 H Calcium Level 9.0 Phosphorus Level 3.6 Magnesium Level 1.7 Total Bilirubin 0.3 Direct Bilirubin 0.00 Indirect Bilirubin 0.3 Aspartate Amino Transf (AST/SGOT) 29 Alanine Aminotransferase (ALT/SGPT) 51 Alkaline Phosphatase 102 # Total Protein 6.0 #L Albumin 3.2 #L Globulin 2.80 Albumin/Globulin Ratio 1.14 Triglycerides Level 98 Cholesterol Level 114 LDL Cholesterol, Calculated 59 HDL Cholesterol 35 Cholesterol/HDL Ratio 3.2 Thyroid Stimulating Hormone (TSH) 0.988 Free Thyroxine Index 2.92 Thyroxine (T4) 7.4 Triiodothyronine (T3) Uptake 39.4 Test 10/25/16 07:52 Bedside Glucose 317 H Medications Medications Current Medications Ondansetron HCl (Zofran Inj) 4 mg Q6H PRN IV NAUSEA AND/OR VOMITING; Start 10/24 at 09:30 Acetaminophen (Tylenol Tab) 650 mg Q6H PRN PO PAIN LEVEL 1-3 OR FEVER; Start at 09:30 Acetaminophen (Tylenol Supp) 650 mg Q6H PRN [place] PAIN LEVEL 1-3 OR FEVER; Start 10/24/16 at 09:30 Acetaminophen/ Hydrocodone Bitart ([place] (5/325)) 1 tab Q6H PRN PO MODERATE PAIN LEVEL 4-6; Start 10/24/16 at 09:30 Acetaminophen/ Hydrocodone Bitart ([place] (5/325)) 2 tab Q6H PRN PO SEVERE PAIN LEVEL 7-10; Start 10/24/16 at 09:30 Morphine Sulfate (morphine) 2 mg Q4H PRN IV SEVERE PAIN LEVEL 7-10; Start at 09:30 Docusate Sodium (Colace) 100 mg Q12H PRN PO CONSTIPATION; Start 10/24/16 at 09: 30 Magnesium Hydroxide (Milk Of Mag) 30 ml DAILY PRN PO CONSTIPATION; Start at 09:30 Bisacodyl (Dulcolax Supp) 10 mg DAILY PRN [place] CONSTIPATION; Start 10/24/16 at 09: 30 Dextrose (D50w Syringe) 25 ml Q15M PRN IV Till BS 80 mg/dL or above x2; Start 10/24/16 at 13:00 Dextrose (D50w Syringe) 50 ml Q15M PRN IV Till BS 80 mg/dL or above x2; Start 10/24/16 at 13:00 Insulin Glargine (Lantus) 26 unit DAILY@20 SC Last administered on 10/24/16t 19: 55; Admin Dose 26 UNIT; Start 10/24/16 at 20:00 Miscellaneous Information 1 ea NOTE XX ; Start 10/24/16 at 17:30 Glucose (Glutose) 15 gm Q15M PRN PO DECREASED GLUCOSE; Start 10/24/16 at 17:30 Glucose (Glutose) 22.5 gm Q15M PRN PO DECREASED GLUCOSE; Start 10/24/16 at 17:30 Dextrose (D50w Syringe) 25 ml Q15M PRN IV DECREASED GLUCOSE; Start 10/24/16 at 17:30 Dextrose (D50w Syringe) 50 ml Q15M PRN IV DECREASED GLUCOSE; Start 10/24/16 at 17:30 Glucagon (Glucagen) 1 mg Q15M PRN IM DECREASED GLUCOSE; Start 10/24/16 at 17:30 Glucose (Glutose) 15 gm Q15M PRN BUCCAL DECREASED GLUCOSE; Start 10/24/16 at 17: 30 Diagnostic Test (Pha) (Accu-Chek) 1 ea 02 XX Last administered on 10/25/16 01: 59; Admin Dose 1 EA; Start 10/25/16 at 02:00 Diagnostic Test (Pha) (Accu-Chek) 1 ea 02 XX Last administered on 10/25/16 01: 59; Admin Dose 1 EA; Start 10/25/16 at 02:00 Famotidine (Pepcid) 40 mg HS PO ; Start 10/25/16 at 21:00 TONE JURADO NP Oct 25, 2016 09:49
--- NOTE | 2016-10-25 15:18 | RADRPT ---
PROCEDURE: US Abdomen and Retroperitoneum. CLINICAL INDICATION: Elevated alkaline phosphatase TECHNIQUE: Multiple real-time longitudinal and transverse images were acquired of the patient's ab domen and retroperitoneum utilizing a curved array transducer. COMPARISON: None FINDINGS: The liver is normal in size and echogenicity without focal mass or intrahepatic biliary dilatation. Normal hepatopetal flow is seen within the main portal vein. The gallbladder is normal. Stones and sludge are present within the gallbladder. No pericholecystic fluid or gallbladder wall edema is se en. No intra or extrahepatic biliary dilatation is seen. The common bile duct measures 3.4 mm in ma ximal dimension. The visualized portions of the pancreas are unremarkable with obscuration of the t ail of the pancreas. The spleen is normal in size and homogeneous in echogenicity. No free fluid i s identified. The right kidney measures 10.3 cm in length. The left kidney measures 10.7 cm in length. There i s normal echogenicity within the kidneys. There are no perinephric fluid collections. No hydroneph rosis, mass, or calculus is seen. The aorta and IVC are unremarkable. IMPRESSION: Gallbladder stones and sludge without evidence of acute cholecystitis. Otherwise,unremarkable abdom inal and retroperitoneal ultrasound. RPTAT: QQ .aHrrison Hillman MD, Date Time Electronically viewed and signed by .Harrison Hillman MD, on 10/25/2016 15:18 .A/
[2016-10-25] MEDS: INSULIN GLARGINE [LANtus] 3 ML PEN SC SCH (20:29)
[2016-10-25] MEDS ORDERED: FAMOTIDINE 20 MG TAB PO SCH (21:00)
[2016-10-26] MEDS: ACCU-CHEK XX SCH ×2 (01:32→01:37)
[2016-10-26 02:10] VITALS: BP 110/68; RESP 16
[2016-10-26 05:42] LABS: BASOPHILS % 0.3 % (0.0-2.0); EOSINOPHILS # 0.1 10^3/ul (0.0-0.5); EOSINOPHILS % 2.1 % (0.0-7.0); HEMATOCRIT 41.7 % (42.0-52.0); HEMOGLOBIN 13.7 g/dl (14.0-18.0); LYMPHOCYTES # 3.1 10^3/ul (0.8-2.9); LYMPHOCYTES % 45.5 % (15.0-51.0); MEAN CORPUSCULAR HEMOGLOBIN 27.8 pg (29.0-33.0); MEAN CORPUSCULAR HGB CONC 32.9 g/dl (32.0-37.0); MEAN CORPUSCULAR VOLUME 84.8 fl (82.0-101.0); MEAN PLATELET VOLUME 12.8 fl (7.4-10.4); MONOCYTE # 0.5 10^3/ul (0.3-0.9); MONOCYTES % 6.6 % (0.0-11.0); NEUTROPHILS % 45.2 % (39.0-77.0); PLATELET COUNT 166 10^3/UL (140-415); RED BLOOD COUNT 4.92 10^6/ul (4.70-6.10); RED CELL DISTRIBUTION WIDTH 12.8 % (11.5-14.5); WHITE BLOOD COUNT 6.8 10^3/ul (4.8-10.8)
[2016-10-26 05:54] LABS: CREATININE 0.67 mg/dl (0.61-1.24); POTASSIUM 3.5 mmol/L (3.5-5.1)
[2016-10-26 05:57] LABS: MAGNESIUM 1.9 mg/dl (1.7-2.5); PHOSPHORUS 3.5 mg/dl (2.5-4.9)
[2016-10-26 08:06] VITALS: BP 104/74; RESP 18
[2016-10-26] MEDS: metFORMIN 500 MG TAB PO SCH (08:17)
[2016-10-26] MEDS: INSULIN ASPART [NOVOLOG] 3 ML PEN SC SCH ×4 (08:20→18:30)
--- NOTE | 2016-10-26 09:48 | CONS ---
Date/Time of Note Date/Time of Note DATE: 10/26/16 TIME: 09:44 Assessment/Plan Assessment/Plan Chief Complaint/Hosp Course Previously healthy 41-year-old [place] gentleman admitted to the hospital. He reports over the last 3 weeks he has had a weight loss unintended of at least 2 pounds week. In addition to this he has had some urinary tract pain with dysuria. He also has noticed polyuria and nocturia. Denies any nausea or vomiting he denies any fevers chills or sweats has any cough wheezing or dyspnea. He reports he does have bad teeth. His forced him to come the emergency room was found to have hyperglycemia. Please note his labs indicate a normal serum bicarbonate. Problems: (1) New onset type 2 diabetes mellitus Status: Acute Comment: It is not entirely clear what the inciting event was to put him over the edge. Either way he is responded quite nicely to a relatively simple therapeutics. I am going to discharge him with the team is concerned on metformin and a single once a day long-acting basal insulin. As an outpatient follow-up we can add in a secretagogue therapy as appropriate. This would be something such as nateglinide or r Starlix or even a old-fashioned sulfonylurea. As a precaution I would advise treating him for the abnormal UA even though the cultures are negative. See below (2) Abnormal finding on urinalysis Status: Acute Comment: His urine culture is negative but urine culture was sent after he had received antibiotics. Given the something set off his hyperosmolar hyperglycemic state I would recommend for a 1 week course of antibiotics as a precaution. Consultation Date/Type/Reason Admit Date/Time Oct 24, 2016 at 10:01 Initial Consult Date 10/24/16 Type of Consultation: Endocrinology Reason for Consultation New diagnosis of diabetes mellitus type 2 with serum bicarb 21 without DKA. I.e. HHS. Referring Provider: ALTA HYMAN 24 HR Interval Summary Constitutional: improved Exam/Review of Systems Vital Signs Vitals Vital Signs Date Time Temp Pulse Resp B/P Pulse Ox O2 Delivery O2 Flow Rate FiO2 10/26/16 08:06 98.1 55 18 104/74 98 10/25/16 12:00 Room Air Intake and Output 10/25/16 10/25/16 10/26/16 15:00 23:00 07:00 Intake Total 1960 ml 800 ml Output Total 850 ml Balance 1960 ml -50 ml Exam Constitutional: alert, oriented Respiratory: clear to auscultation, normal air movement Cardiovascular: nl pulses, regular rate and rhythm Results Result Diagram: 10/26/16 0425 10/26/16 0425 Results 24 hrs Laboratory Tests Test 10/25/16 11:22 10/25/16 14:52 10/25/16 18:05 10/25/16 20:26 Bedside Glucose 156 173 251 H 237 H Test 10/26/16 01:31 10/26/16 04:25 10/26/16 08:16 Bedside Glucose 190 202 White Blood Count 6.8 Red Blood Count 4.92 Hemoglobin 13.7 L Hematocrit 41.7 L Mean Corpuscular Volume 84.8 Mean Corpuscular Hemoglobin 27.8 L Mean Corpuscular Hemoglobin Concent 32.9 Red Cell Distribution Width 12.8 Platelet Count 166 Mean Platelet Volume 12.8 H Neutrophils % 45.2 Lymphocytes % 45.5 Monocytes % 6.6 Eosinophils % 2.1 Basophils % 0.3 Nucleated Red Blood Cells % 0.0 Neutrophils # (Manual) 3.1 Lymphocytes # 3.1 H Monocytes # 0.5 Eosinophils # 0.1 Basophils # 0.0 Nucleated Red Blood Cells # 0.0 Sodium Level 139 Potassium Level 3.5 Chloride Level 102 Carbon Dioxide Level 29 Anion Gap 12 Blood Urea Nitrogen 11 Creatinine 0.67 Glucose Level 173 Calcium Level 9.0 Phosphorus Level 3.5 Magnesium Level 1.9 Medications Medications Current Medications Ondansetron HCl (Zofran Inj) 4 mg Q6H PRN IV NAUSEA AND/OR VOMITING; Start 10/24 at 09:30 Acetaminophen (Tylenol Tab) 650 mg Q6H PRN PO PAIN LEVEL 1-3 OR FEVER; Start at 09:30 Acetaminophen (Tylenol Supp) 650 mg Q6H PRN [place] PAIN LEVEL 1-3 OR FEVER; Start 10/24/16 at 09:30 Acetaminophen/ Hydrocodone Bitart ([place] (5/325)) 1 tab Q6H PRN PO MODERATE PAIN LEVEL 4-6; Start 10/24/16 at 09:30 Acetaminophen/ Hydrocodone Bitart ([place] (5/325)) 2 tab Q6H PRN PO SEVERE PAIN LEVEL 7-10; Start 10/24/16 at 09:30 Morphine Sulfate (morphine) 2 mg Q4H PRN IV SEVERE PAIN LEVEL 7-10; Start at 09:30 Docusate Sodium (Colace) 100 mg Q12H PRN PO CONSTIPATION; Start 10/24/16 at 09: 30 Magnesium Hydroxide (Milk Of Mag) 30 ml DAILY PRN PO CONSTIPATION Last administered on 10/25/16 18:42; Admin Dose 30 ML; Start 10/24/16 at 09:30 Bisacodyl (Dulcolax Supp) 10 mg DAILY PRN [place] CONSTIPATION Last administered on 10/26/16 06:16; Admin Dose 10 MG; Start 10/24/16 at 09:30 Dextrose (D50w Syringe) 25 ml Q15M PRN IV Till BS 80 mg/dL or above x2; Start 10/24/16 at 13:00 Dextrose (D50w Syringe) 50 ml Q15M PRN IV Till BS 80 mg/dL or above x2; Start 10/24/16 at 13:00 Insulin Glargine (Lantus) 26 unit DAILY@20 SC Last administered on 10/25/16 20: 29; Admin Dose 26 UNIT; Start 10/24/16 at 20:00 Miscellaneous Information 1 ea NOTE XX ; Start 10/24/16 at 17:30 Glucose (Glutose) 15 gm Q15M PRN PO DECREASED GLUCOSE; Start 10/24/16 at 17:30 Glucose (Glutose) 22.5 gm Q15M PRN PO DECREASED GLUCOSE; Start 10/24/16 at 17:30 Dextrose (D50w Syringe) 25 ml Q15M PRN IV DECREASED GLUCOSE; Start 10/24/16 at 17:30 Dextrose (D50w Syringe) 50 ml Q15M PRN IV DECREASED GLUCOSE; Start 10/24/16 at 17:30 Glucagon (Glucagen) 1 mg Q15M PRN IM DECREASED GLUCOSE; Start 10/24/16 at 17:30 Glucose (Glutose) 15 gm Q15M PRN BUCCAL DECREASED GLUCOSE; Start 10/24/16 at 17: 30 Diagnostic Test (Pha) (Accu-Chek) 1 ea 02 XX Last administered on 10/25/16 01: 59; Admin Dose 1 EA; Start 10/25/16 at 02:00 Diagnostic Test (Pha) (Accu-Chek) 1 ea 02 XX Last administered on 10/25/16 01: 59; Admin Dose 1 EA; Start 10/25/16 at 02:00 Famotidine (Pepcid) 40 mg HS PO Last administered on 10/25/16 20:25; Admin Dose 40 MG; Start 10/25/16 at 21:00 JACQUELINE HANNA MD Oct 26, 2016 09:48
[2016-10-26] MEDS ORDERED: AMOXICILLIN/CLAV 875 MG TAB PO SCH (10:00)
--- NOTE | 2016-10-26 15:38 | PN ---
Date/Time of Note Date/Time of Note DATE: 10/26/16 TIME: 15:35 Assessment/Plan VTE Prophylaxis VTE Prophylaxis Intervention: SCD's Lines/Catheters IV Catheter Type (from [facility]): [place] Urinary Cath still in place: No Assessment/Plan Chief Complaint/Hosp Course 1. New onset diabetes mellitus. Most probably type II. Continue sliding scale insulin. The patient being followed by endocrinology. Patient was started on metformin. The patient had findings suggestive of DKA upon admission. However, as per endocrinology the patient was not in any DKA. Hence , the patient was not started on any insulin drip. Hemoglobin A1c 13.2. 2. Transaminitis. Resolved. 3. Positive urinalysis. Urine microscopic WBC of 75. The patient remains afebrile. Urine cultures negative On empiric antibiotics, since the cultures were obtained after initiating antibiotics. 4. Fluids, electrolytes, and nutrition. Carbohydrate controlled diet. 5. DVT prophylaxis. Sequential compression devices. 6. Gastrointestinal prophylaxis. Histamine 2 receptor blockers. 7. Plan. Continue diabetes management as per endocrinology. Await dietary and diabetes education. Case discussed with Dr. Bernard. Problems: Subjective 24 Hr Interval Summary Free Text/Dictation Denies any complaints. Exam/Review of Systems Vital Signs Vitals Vital Signs Date Time Temp Pulse Resp B/P Pulse Ox O2 Delivery O2 Flow Rate FiO2 10/26/16 08:06 98.1 55 18 104/74 98 10/25/16 12:00 Room Air Intake and Output 10/25/16 10/25/16 10/26/16 15:00 23:00 07:00 Intake Total 1960 ml 800 ml Output Total 850 ml Balance 1960 ml -50 ml Exam General: Adequately build 41 year-old male lying in bed in no apparent distress. HEENT: Normocephalic, atraumatic. Eyes: Anicteric sclerae, conjunctivae clear. ENT: Nasal septum midline, oral mucosa moist. Neck supple, no JVD noticed. Respiratory: Bilaterally clear breath sounds. No use of accessory muscles of respiration. No adventitious breath sounds. Cardiovascular: S1, S2 heard. No murmurs or gallops. Abdomen: Soft, nontender, and nondistended. Bowel sounds positive in all 4 quadrants. Genitourinary: Deferred. Extremities: No cyanosis, no clubbing, no edema. Peripheral pulses palpable. Neurologic: Cranial nerves II through XII grossly intact. The patient is awake, alert, and oriented. Skin: Normal skin turgor. No skin rashes. Results Result Diagram: 10/26/16 0425 10/26/16 0425 Results 24 hrs Laboratory Tests Test 10/25/16 18:05 10/25/16 20:26 10/26/16 01:31 10/26/16 04:25 Bedside Glucose 251 H 237 H 190 White Blood Count 6.8 Red Blood Count 4.92 Hemoglobin 13.7 L Hematocrit 41.7 L Mean Corpuscular Volume 84.8 Mean Corpuscular Hemoglobin 27.8 L Mean Corpuscular Hemoglobin Concent 32.9 Red Cell Distribution Width 12.8 Platelet Count 166 Mean Platelet Volume 12.8 H Neutrophils % 45.2 Lymphocytes % 45.5 Monocytes % 6.6 Eosinophils % 2.1 Basophils % 0.3 Nucleated Red Blood Cells % 0.0 Neutrophils # (Manual) 3.1 Lymphocytes # 3.1 H Monocytes # 0.5 Eosinophils # 0.1 Basophils # 0.0 Nucleated Red Blood Cells # 0.0 Sodium Level 139 Potassium Level 3.5 Chloride Level 102 Carbon Dioxide Level 29 Anion Gap 12 Blood Urea Nitrogen 11 Creatinine 0.67 Glucose Level 173 Calcium Level 9.0 Phosphorus Level 3.5 Magnesium Level 1.9 Test 10/26/16 08:16 10/26/16 10:22 10/26/16 12:33 Bedside Glucose 202 202 Lab Scanned Report REFERENCE LAB Medications Medications Current Medications Ondansetron HCl (Zofran Inj) 4 mg Q6H PRN IV NAUSEA AND/OR VOMITING; Start 10/24 at 09:30 Acetaminophen (Tylenol Tab) 650 mg Q6H PRN PO PAIN LEVEL 1-3 OR FEVER; Start at 09:30 Acetaminophen (Tylenol Supp) 650 mg Q6H PRN [place] PAIN LEVEL 1-3 OR FEVER; Start 10/24/16 at 09:30 Acetaminophen/ Hydrocodone Bitart ([place] (5/325)) 1 tab Q6H PRN PO MODERATE PAIN LEVEL 4-6; Start 10/24/16 at 09:30 Acetaminophen/ Hydrocodone Bitart ([place] (5/325)) 2 tab Q6H PRN PO SEVERE PAIN LEVEL 7-10; Start 10/24/16 at 09:30 Morphine Sulfate (morphine) 2 mg Q4H PRN IV SEVERE PAIN LEVEL 7-10; Start at 09:30 Docusate Sodium (Colace) 100 mg Q12H PRN PO CONSTIPATION; Start 10/24/16 at 09: 30 Magnesium Hydroxide (Milk Of Mag) 30 ml DAILY PRN PO CONSTIPATION Last administered on 10/25/16 18:42; Admin Dose 30 ML; Start 10/24/16 at 09:30 Bisacodyl (Dulcolax Supp) 10 mg DAILY PRN [place] CONSTIPATION Last administered on 10/26/16 06:16; Admin Dose 10 MG; Start 10/24/16 at 09:30 Dextrose (D50w Syringe) 25 ml Q15M PRN IV Till BS 80 mg/dL or above x2; Start 10/24/16 at 13:00 Dextrose (D50w Syringe) 50 ml Q15M PRN IV Till BS 80 mg/dL or above x2; Start 10/24/16 at 13:00 Insulin Glargine (Lantus) 26 unit DAILY@20 SC Last administered on 10/25/16 20: 29; Admin Dose 26 UNIT; Start 10/24/16 at 20:00 Miscellaneous Information 1 ea NOTE XX ; Start 10/24/16 at 17:30 Glucose (Glutose) 15 gm Q15M PRN PO DECREASED GLUCOSE; Start 10/24/16 at 17:30 Glucose (Glutose) 22.5 gm Q15M PRN PO DECREASED GLUCOSE; Start 10/24/16 at 17:30 Dextrose (D50w Syringe) 25 ml Q15M PRN IV DECREASED GLUCOSE; Start 10/24/16 at 17:30 Dextrose (D50w Syringe) 50 ml Q15M PRN IV DECREASED GLUCOSE; Start 10/24/16 at 17:30 Glucagon (Glucagen) 1 mg Q15M PRN IM DECREASED GLUCOSE; Start 10/24/16 at 17:30 Glucose (Glutose) 15 gm Q15M PRN BUCCAL DECREASED GLUCOSE; Start 10/24/16 at 17: 30 Diagnostic Test (Pha) (Accu-Chek) 1 ea 02 XX Last administered on 10/25/16 01: 59; Admin Dose 1 EA; Start 10/25/16 at 02:00 Diagnostic Test (Pha) (Accu-Chek) 1 ea 02 XX Last administered on 10/25/16 01: 59; Admin Dose 1 EA; Start 10/25/16 at 02:00 Famotidine (Pepcid) 40 mg HS PO Last administered on 10/25/16 20:25; Admin Dose 40 MG; Start 10/25/16 at 21:00 Amoxicillin/ Clavulanate Potassium (Augmentin) 875 mg BID PO Last administered on 10/26/16 12:29; Admin Dose 875 MG; Start 10/26/16 at 10:00; Stop 11/02/16 at 09:59 TONE JURDAO NP Oct 26, 2016 15:37
[2016-10-26 15:44] VITALS: BP 108/74; RESP 18
[2016-10-26 15:51] LABS: MICROALBUMIN 0.3 mg/dL
--- NOTE | 2016-10-26 16:37 | PDOCDIS ---
Discharge Instructions DIAGNOSIS Discharge Diagnosis Newly diagnosed diabetes mellitus. CONDITION Patient Condition: Stable HOME CARE INSTRUCTIONS: Special Diet: carb control FOLLOW UP/APPOINTMENTS Follow-up Plan Dick Leos MD Specialty: Internal Medicine Office Address: [address] [place], [place] [id number] Office OTHER ORDERS: Other Orders: 1. Take medications as per prescription for 2. Follow a low carbohydrate diet. 3. We will up with the primary care physician 1 week. If you do not have a primary care physician, please call Dr. Dick Leos's office. 4. Activities as tolerated. TONE JURDAO NP Oct 26, 2016 16:37
[2016-10-26] MEDS ORDERED: METF500T PO (16:39)
[2016-10-26] MEDS ORDERED: LANT3I SC (16:39)
[2016-10-26] MEDS ORDERED: AMO500 PO (16:40)
[2016-10-26] MEDS ORDERED: metFORMIN 500 MG TAB PO SCH (17:55)
--- NOTE | 2016-10-26 20:14 | DS ---
DATE OF ADMISSION: 10/24/2016 DATE OF DISCHARGE: 10/26/2016 FINAL DIAGNOSES: 1. New onset diabetes mellitus. 2. Transaminitis, resolved. 3. Positive urinalysis, high likelihood of urinary tract infection. CONSULTANTS: Kendell Ortega MD, endocrinology. HOSPITAL COURSE: This is a 41-year-old male with no significant past medical history, who came to [facility] with 2 weeks of nausea, as well as vomiting that was nonbilious and nonbloody. The patient denied any subjective fevers or dysuria, or dyspnea, or any other sick contacts. In the emergency room, the patient was noticed to have a serum glucose of 583. Provided the patient's history of present illness and the diagnostic findings, a clinical decision was made to admit the patient to inpatient setting to have him further evaluated. The patient's urinalysis showed positive ketones. The patient had minimally elevated anion gap. Hence the patient was admitted to inpatient intensive care unit for insulin drip for possible underlying diabetic ketoacidosis. An endocrinology consult was obtained. Endocrinology saw and evaluated the patient. Endocrinology confirmed that the patient is not in any DKA. However, the patient has newly diagnosed diabetes mellitus most probably type 2. The patient was started on appropriate insulin therapy with improvement in the patient's blood sugars. Once the patient's blood sugars were improved, the patient was started on metformin. The patient was noticed to have a hemoglobin A1c of 13.9. The patient was never diagnosed with any diabetes in the past. It was highly suspected that some kind of infection triggered the patient's hyperglycemic episode. The patient had a significantly positive urinalysis upon admission. The patient had a urine WBC of 75 upon admission. Nevertheless, the patient's urine cultures remained negative. However, the patient was treated empirically for any underlying urinary tract infection since the patient most likely had a urinary tract infection as evidenced by a very significant urinalysis. The patient was transferred to medical surgical floor after 24 hours of observation in the intensive care unit. The patient was seen by the registered dietitian and supervisory air intercept controller. The patient was instructed on a carbohydrate controlled diet and blood sugar checks. The patient was cleared by endocrinology to be discharged home. The patient's blood sugars are fairly well controlled at this time. The patient was noticed to have some transaminitis upon admission, specifically elevated alkaline phosphatase. This was resolved over the hospital course. The patient underwent a gallbladder ultrasound that showed some cholelithiasis with no evidence of any intrahepatic biliary dilatation or acute cholecystitis. DISCHARGE DISPOSITION AND PLAN: The patient will be discharged home today. The patient was instructed to take medications as per prescription. The patient was instructed to follow a carbohydrate controlled diet. The patient was instructed to follow up with his primary care physician in 1 week. If he does not have a primary care physician, he was instructed to follow up with Dr. Dick Leos's office. The patient verbalized understanding of his discharge instructions. DISCHARGE CONDITION: Stable. DISCHARGE MEDICATIONS: 1. Amoxicillin 500 mg p.o. q.8 hours for 7 days. 2. Lantus insulin 26 units subcutaneous daily (1 month supply). 3. Metformin 1000 mg p.o. b.i.d. with meals. PERTINENT LABORATORY AND DIAGNOSTIC DATA: 1. Blood culture x2 negative. 2. Urine culture negative. 3. Latest CBC: WBC 6.8, hemoglobin 13.7, hematocrit 41.7, platelet count 166. 4. Latest BMP: Sodium 139, potassium 3.5, chloride 102, carbon dioxide 20, anion gap 12, BUN 11, creatinine 0.6, and glucose 173, calcium 9.0, phosphorus 3.5, magnesium 1.9. 5. Hemoglobin A1c 13.9. 6. Fasting lipid panel: Triglycerides 98, total cholesterol 114, LDL 59, HDL 35. 7. Abdominal ultrasound: Gallbladder stones and sludge without evidence of acute cholecystitis. 8. Hepatitis B surface antigen negative, hepatitis C antibody negative. DISCUSSION: At this time. I would like to thank Dr. Ortega for seeing the patient and providing clinical recommendations. The case and management of this patient was fully discussed with Dr. Bernard. Approximately 40 minutes was spent on coordinating the discharge of this patient. Dictated By: Linwood Rick NP /des/maricarmen /Document#: [id number]
[2016-10-31] MEDS ORDERED: morphine SULFATE/PF (10 MG/10 ML) INJ ONE (15:08)
[2016-10-31] MEDS ORDERED: GLYCOPYRROLATE 0.4 MG INJ ONE (15:09)
[2016-10-31] MEDS ORDERED: DEXAMETHASONE 4 MG/ML 1 ML INJ ONE (15:09)
[2016-10-31] MEDS ORDERED: NEOSTIGMINE 3 MG/3 ML SYRINGE ONE (15:09)
[2016-10-31] MEDS ORDERED: CEFAZOLIN 1 GM INJ ONE (15:09)
[2016-10-31] MEDS ORDERED: ROCURONIUM 50 MG INJ ONE (15:09)
[2016-10-31] MEDS ORDERED: ONDANSETRON 4 MG INJ ONE (15:09)
[2016-10-31] MEDS ORDERED: PROPOFOL 20 ML ONE (15:09)
[2016-10-31] MEDS ORDERED: FENTAnyl 50 MCG/ML VIAL ONE (15:09)
[2016-10-31] MEDS ORDERED: MIDAZOLAM 1 MG/ML 2 ML INJ ONE (15:09)
[2016-10-31] MEDS ORDERED: ETOMIDATE 20 MG INJ ONE (15:09)
[2016-10-31] MEDS ORDERED: SUGAMMADEX SODIUM 200 MG/2 ML VIAL IV ONE (16:58)
== END 2016-10-26 19:30 | disposition home or self-care (01) | DRG 638 ==
LOC: E/R 23:49 → ICU 10-24 10:01 → MS1 10-25 12:30
PROVIDERS: ADMIT Hospitalist; ATTEND Hospitalist
DX: E11.65 Type 2 diabetes mellitus with hyperglycemia (principal); Z68.1 Body mass index [BMI] 19.9 or less, adult; N39.0 Urinary tract infection, site not specified; R63.4 Abnormal weight loss
CPT/HCPCS: 36415; 76700; 80048; 80053; 80061; 81003; 81005; 82043; 82962; 83036; 83690; 83735; 84100; 84436; 84443; 84479; 84681; 85025; 86337; 86803; 87040; 87081; 87086; 87340; 96365; 96366; 96375; C1751; C9113; J0692; J1815; J2270; J2405; J7030; J7120

== ENCOUNTER → 2016-11-02 | Outpatient (CLI) | payer MEDICAID ==
[~2016-11-02] VITALS: Ht 160 cm; Wt 71.8 kg
[~2016-11-02] MED LIST: AMO500 PO; LANT3I SC; METF500T PO
[2016-11-02 14:30] VITALS: BP 113/69; PULSE 73; RESP 16; Ht 160 cm; Wt 71.8 kg
--- NOTE | 2016-11-02 15:42 | PN ---
Date/Time of Note Date/Time of Note DATE: 11/02/16 TIME: 15:37 Outpatient Progress Note Chief Complaint Diabetes/UTI/elevated LFT HPI Diabetes/no polydipsia polyuria hypoglycemia, gastroparesis, patient blood sugar about 210 today, no impaired vision, no episode of hypoglycemia, TIA/patient had UTI, patient was prescribed amoxicillin, patient doing better, Elevated LFT,/no nausea vomiting, no abdominal pain, Review of Systems Const: No Fever, no chills, no Wt. loss, no Fatigue, normal appetite, no diaphoresis. Eyes: No pain, no discharge, no redness, no visual change, no foreign body. ENT: No pain, no bleeding, no congestion, no sore throat, no dysphagia, no discharge or rhinitis. Lymph: No adenopathy, no tender nodes, no lymphedema. Resp: No SOB, no cough, no sputum, no wheezing, no chest pain. CV: No chest pain, no palpitaions, no BAILON, no PND, no edema. GI: Normal appetite, no pain, no nausea, no vomiting, no diarrhea, no blood, no constipation. : No frequency, no urgency, no dysuria, no hematuria, no flank pain, no discharge, no bleeding. Musc: No bone/joint pain, no back pain, no neck pain, no knee pain, no restricted ROM. Skin: No rash, no skin lesions, no erythema, no laceration, no bruising, no pruritus. Neuro: No PALOMINO, no dizziness, no syncope, no seizure, no focal-weakness. Endo: No polyuria, no polydypsia, no dry-skin, no temp-intolerance. Psych: No hallucinations, no depression, no anxiety, no suicidal ideation. Ext: No edema, no pain, no ulcer, no weakness. Physical Exam Vital Signs Date Time Temp Pulse Resp B/P Pulse Ox O2 Delivery O2 Flow Rate FiO2 11/02/16 14:30 98.0 73 16 113/69 99 Room Air General Appearance: A 41 year-old male who appears well-developed, well- nourished, in no acute distress. HEENT: Head normocephalic, atraumatic. Pupils equal, round, reactive to light and accommodate. Sclerae are no jaundice. Nasal turbinates pink without erythema or nasal discharge. Mucous membranes pink and moist without lesions. Oropharynx clear without any exudate or discharge. NECK: Supple. Trachea midline, No thyromegaly, No cervical lymphadenopathy, No mass, No carotid bruits, No JVD, Carotid pulses 2+ bilaterally. PULMONARY: Clear to auscultaion bilaterally, No retractions, Chest expansion symmetric bilaterally, no rales, no ronchi, no dulness on percussion. CARDIAC: Normal SI and S2, Regular rate and rythm, no murmur, gallop, or rub. GASTROINTESTINAL: Abdomen is soft, non-tender, Non Rigid, No distention, Positive bowel sounds x4 quadrants, Liver normal. SKIN: Warm, dry, no rash, no bruise, no echmosis. EXTREMITIES: Bilateral lower extremities normal, no edema, no phlabitus, pulse palpable, no contracture. MUSCULOSKELETAL: Spine Normal, Non-tender, Normal range of motion, No swelling, no deformity, no clubbing, or cyanosis, the patient has no edema to bilateral lower extremities, dorsalis pedis pulses palpable bilaterally. NEUROLOGIC: The patient is awake, alert, oriented, responding to yes/no questions appropriately, moving all extremities, cranial nerve intact, normal strenght, normal power, normal coordination, normal gait. Allergies Coded Allergies: No Known Allergies (Unverified Allergy, Unknown, 10/24/16) H Insert of diabetes/UTI/elevated LFT Social Hx No smoking no drinking, Family Hx Noncontributory Assessment/Plan Impression New onset of diabetes/UTI resolved/elevated LFT Plan Patient education done about diabetes and hypoglycemia, Patient explained about diet, increase exercise, lose weight, Patient also has elevated blood sugar, will increase Lantus to 30 units from 26 units, and will monitor blood sugar, discussed with the patient to bring the blood sugar reading next visit, Patient encouraged to follow with the primary care physician, patient does not need any more new medication, Medications Home Meds Active Scripts Amoxicillin* (Amoxicillin*) 500 Mg Cap, 500 MG PO Q8, #21 CAP Prov:TONE JURADO NP 10/26/16 Insulin Glargine* (Lantus*) 100 Unit/Ml Soln, 26 UNIT SC DAILY@20 for 30 Days, # 30 UNITS Prov:TONE JURADO NP 10/26/16 Metformin Hcl (Glucophage) 500 Mg Tablet, 1000 MG PO BID WITH MEALS, #60 TAB Prov:TONE JURADO NP 10/26/16 SALVADOR JOHNSTON MD Nov 02, 2016 15:42
== END | disposition home or self-care (01) ==
LOC: DCC 14:23
PROVIDERS: ATTEND Internal Medicine
DX: E11.9 Type 2 diabetes mellitus without complications (principal); N39.0 Urinary tract infection, site not specified; R79.89 Other specified abnormal findings of blood chemistry; Z86.73 Personal history of transient ischemic attack (TIA), and cerebral infarction without residual deficits; Z79.84 Long term (current) use of oral hypoglycemic drugs; Z79.4 Long term (current) use of insulin

== ENCOUNTER → 2016-11-23 | Outpatient (CLI) | payer MEDICAID ==
[~2016-11-23] VITALS: Ht 160 cm; Wt 74.5 kg
[~2016-11-23] MED LIST changes: -AMO500 PO; +AMOX500C2 PO
[2016-11-23 12:05] VITALS: BP 122/75; PULSE 76; RESP 16; Ht 160 cm; Wt 74.5 kg
--- NOTE | 2016-11-23 12:31 | PN ---
Date/Time of Note Date/Time of Note DATE: 11/23/16 TIME: 12:28 Outpatient Progress Note Chief Complaint Diabetes/ HPI Diabetes/patient was recently hospitalized with diabetes, patient blood sugar fairly controlled, patient had UTI, patient had amoxicillin patient completed the course, patient also had elevated LFT, patient denies any nausea vomiting or abdominal pain, patient has improved significantly, She is checking her blood sugar on a regular basis, patient blood sugar has been fairly stable, Review of Systems Const: No Fever, no chills, no Wt. loss, no Fatigue, normal appetite, no diaphoresis. Eyes: No pain, no discharge, no redness, no visual change, no foreign body. ENT: No pain, no bleeding, no congestion, no sore throat, no dysphagia, no discharge or rhinitis. Lymph: No adenopathy, no tender nodes, no lymphedema. Resp: No SOB, no cough, no sputum, no wheezing, no chest pain. CV: No chest pain, no palpitaions, no BAILON, no PND, no edema. GI: Normal appetite, no pain, no nausea, no vomiting, no diarrhea, no blood, no constipation. : No frequency, no urgency, no dysuria, no hematuria, no flank pain, no discharge, no bleeding. Musc: No bone/joint pain, no back pain, no neck pain, no knee pain, no restricted ROM. Skin: No rash, no skin lesions, no erythema, no laceration, no bruising, no pruritus. Neuro: No PALOMINO, no dizziness, no syncope, no seizure, no focal-weakness. Endo: No polyuria, no polydypsia, no dry-skin, no temp-intolerance. Psych: No hallucinations, no depression, no anxiety, no suicidal ideation. Ext: No edema, no pain, no ulcer, no weakness. Physical Exam General Appearance: A 41 year-old male who appears well-developed, well- nourished, in no acute distress. HEENT: Head normocephalic, atraumatic. Pupils equal, round, reactive to light and accommodate. Sclerae are no jaundice. Nasal turbinates pink without erythema or nasal discharge. Mucous membranes pink and moist without lesions. Oropharynx clear without any exudate or discharge. NECK: Supple. Trachea midline, No thyromegaly, No cervical lymphadenopathy, No mass, No carotid bruits, No JVD, Carotid pulses 2+ bilaterally. PULMONARY: Clear to auscultaion bilaterally, No retractions, Chest expansion symmetric bilaterally, no rales, no ronchi, no dulness on percussion. CARDIAC: Normal SI and S2, Regular rate and rythm, no murmur, gallop, or rub. GASTROINTESTINAL: Abdomen is soft, non-tender, Non Rigid, No distention, Positive bowel sounds x4 quadrants, Liver normal. SKIN: Warm, dry, no rash, no bruise, no echmosis. EXTREMITIES: Bilateral lower extremities normal, no edema, no phlabitus, pulse palpable, no contracture. MUSCULOSKELETAL: Spine Normal, Non-tender, Normal range of motion, No swelling, no deformity, no clubbing, or cyanosis, the patient has no edema to bilateral lower extremities, dorsalis pedis pulses palpable bilaterally. NEUROLOGIC: The patient is awake, alert, oriented, responding to yes/no questions appropriately, moving all extremities, cranial nerve intact, normal strenght, normal power, normal coordination, normal gait. Allergies Coded Allergies: No Known Allergies (Unverified Allergy, Unknown, 10/24/16) PMH Diabetes/UTI/abnormal LFT Social Hx No smoking or drinking, Family Hx Noncontributory Assessment/Plan Impression Diabetes/UTI resolved/abnormal LFT Plan Patient education done about diabetes, patient doing very well, patient blood sugar reviewed, patient blood sugar under control, Patient encouraged to follow with primary care physician, Patient also advised to increase activity, and follow the diet and exercise, complication of the diabetes explained to the patient, Patient given a prescription about Metformin and insulin and supply, Medications Home Meds Active Scripts Amoxicillin* (Amoxicillin*) 500 Mg Cap, 500 MG PO Q8, #21 CAP Prov:TONE JURADO NP 10/26/16 Insulin Glargine* (Lantus*) 100 Unit/Ml Soln, 26 UNIT SC DAILY@20 for 30 Days, # 30 UNITS Prov:TONE JURADO NP 10/26/16 Metformin Hcl (Glucophage) 500 Mg Tablet, 1000 MG PO BID WITH MEALS, #60 TAB Prov:TONE JURADO NP 10/26/16 SALVADOR JOHNSTON MD Nov 23, 2016 12:31
== END | disposition home or self-care (01) ==
LOC: DCC 12:50
PROVIDERS: ATTEND Internal Medicine
DX: E11.9 Type 2 diabetes mellitus without complications (principal); N39.0 Urinary tract infection, site not specified; R79.89 Other specified abnormal findings of blood chemistry
CPT/HCPCS: 82962

== ENCOUNTER 2017-02-05 21:10 | Emergency (ER) | payer SELFPAY ==
[~2017-02-05] VITALS: Ht 160 cm; Wt 81.0 kg
[~2017-02-05 21:10] MED LIST changes: -AMOX500C2 PO
[2017-02-05 21:12] VITALS: Ht 160 cm; Wt 81.0 kg
[2017-02-06] MEDS ORDERED: KETOROLAC 30 MG INJ IV STA
[2017-02-06] MEDS ORDERED: DEXAMETHASONE 10 MG/ML 1 ML INJ IV ONE
[2017-02-06] MEDS ORDERED: IOHEXOL 300MG/ML 150 ML BTL ONE (00:21)
[2017-02-06] MEDS ORDERED: SOD CHLORIDE 0.9% 100 ML ONE (00:21)
[2017-02-06 00:48] LABS: BASOPHILS % 0.3 % (0.0-2.0); EOSINOPHILS # 0.1 10^3/ul (0.0-0.5); EOSINOPHILS % 0.7 % (0.0-7.0); HEMATOCRIT 40.8 % (42.0-52.0); HEMOGLOBIN 14.3 g/dl (14.0-18.0); LYMPHOCYTES # 2.5 10^3/ul (0.8-2.9); LYMPHOCYTES % 18.4 % (15.0-51.0); MEAN CORPUSCULAR HEMOGLOBIN 28.9 pg (29.0-33.0); MEAN CORPUSCULAR VOLUME 82.6 fl (82.0-101.0); MEAN PLATELET VOLUME 11.8 fl (7.4-10.4); MONOCYTE # 1.3 10^3/ul (0.3-0.9); MONOCYTES % 9.4 % (0.0-11.0); NEUTROPHIL # 9.6 10^3/ul (1.6-7.5); NEUTROPHILS % 70.9 % (39.0-77.0); PLATELET COUNT 199 10^3/UL (140-415); RED BLOOD COUNT 4.94 10^6/ul (4.70-6.10); RED CELL DISTRIBUTION WIDTH 12.6 % (11.5-14.5); WHITE BLOOD COUNT 13.5 10^3/ul (4.8-10.8)
[2017-02-06 01:36] LABS: CALCIUM 9.5 mg/dl (8.4-10.2); CREATININE 0.8 mg/dl (0.61-1.24)
[2017-02-06] MEDS ORDERED: AMOX500C2 PO (02:27)
[2017-02-06] MEDS ORDERED: IBUP-1542 PO (02:28)
[2017-02-06] MEDS ORDERED: CEFTRIAXONE 1 GM/50 ML (PMX) 50 ML IVPB ONE (02:30)
--- NOTE | 2017-02-06 02:56 | ERD ---
ER Documentation Chief Complaint Chief Complaint sore throat x 1 week/painful swallowing HPI Patient is a 41-year-old male with a past medical history of DM type II, currently on insulin, peritonsillar abscess who presents ED for concerns of throat pain 1 week. Patient does report pain with swallowing. Reports intermittent fevers for the last week. Patient states temperature was 101 yesterday. Patient states he last took ibuprofen at noon today. Patient any trismus or drooling. Patient states that he has pain with swallowing. Patient denies any nausea, vomiting, chest pain, shortness of breath, cough, abdominal pain, diarrhea or loss of consciousness. Patient does report some ear pain. No recent travel. No sick contacts. Patient states that he feels symptoms are similar to when he had peritonsillar abscess. ROS All systems reviewed and are negative except as per history of present illness. Medications Home Meds Active Scripts Ibuprofen* (Motrin*) 600 Mg Tab, 600 MG PO Q6, #20 TAB Prov:BETH VARELA PA-C 02/06/17 Amoxicillin* (Amoxicillin*) 500 Mg Cap, 500 MG PO BID for 10 Days, CAP Prov:BETH VARELA PA-C 02/06/17 Insulin Glargine* (Lantus*) 100 Unit/Ml Soln, 26 UNIT SC DAILY@20 for 30 Days, # 30 UNITS Prov:TONE JURADO NP 10/26/16 Metformin Hcl (Glucophage) 500 Mg Tablet, 1000 MG PO BID WITH MEALS, #60 TAB Prov:TONE JURADO NP 10/26/16 Allergies Allergies: Coded Allergies: No Known Allergies (Unverified Allergy, Unknown, 02/05/17) PMhx/Soc History of Surgery: No Hx Neurological Disorder: No Hx Respiratory Disorders: No Hx Cardiac Disorders: No Hx Psychiatric Problems: No Hx Miscellaneous Medical Probl: Yes (DM) Hx Alcohol Use: No Hx Substance Use: No Hx Tobacco Use: No Physical Exam Vitals Vital Signs Date Time Temp Pulse Resp B/P Pulse Ox O2 Delivery O2 Flow Rate FiO2 02/06/17 03:20 97.6 66 20 121/74 97 Room Air 02/05/17 21:12 98.2 99 20 139/88 99 Physical Exam GENERAL: Well-developed, well-nourished male. Appears in no acute distress. Speaking in full sentences. HEAD: Normocephalic, atraumatic. No deformities or ecchymosis. EYE: Pupils equal, round, and reactive to light. EOMs intact. No conjunctival erythema. No eye discharge. ENT: External ear without any masses or tenderness. TM visualized bilaterally, erythematous, non-bulging. Nasal mucosa pink with no discharge. Oropharynx is erythematous with bilateral 2+ tonsillar swelling. Exudates noted on the patient's left tonsil. No uvula deviation. Pharynx is open, no kissing tonsils. No unilateral tonsillar swelling. No trismus. No drooling. NECK: Supple. No meningismus. Normal ROM of the neck. LUNG: Clear to auscultation bilaterally. No rhonchi, wheezing, rales or coarse breath sounds. HEART: Regular rate and rhythm. No murmurs, rubs or gallops. BACK: No midline tenderness. EXTREMITIES: Equal pulses bilaterally. No peripheral clubbing, cyanosis or edema. No unilateral leg swelling. NEUROLOGIC: Alert and oriented to person, place and time. Moving all four extremities. 5/5 strength in all extremities. Normal speech. Steady gait. SKIN: Normal color. Warm and dry. No rashes or lesions. Result Diagram: 02/06/17 0027 02/06/17 0027 Results 24 hrs Laboratory Tests Test 02/06/17 00:27 02/06/17 01:04 White Blood Count 13.510^3/ul Red Blood Count 4.9410^6/ul Hemoglobin 14.3g/dl Hematocrit 40.8% Mean Corpuscular Volume 82.6fl Mean Corpuscular Hemoglobin 28.9pg Mean Corpuscular Hemoglobin Concent 35.0g/dl Red Cell Distribution Width 12.6% Platelet Count 92010^3/UL Mean Platelet Volume 11.8fl Neutrophils % 70.9% Lymphocytes % 18.4% Monocytes % 9.4% Eosinophils % 0.7% Basophils % 0.3% Nucleated Red Blood Cells % 0.0/100WBC Neutrophils # 9.610^3/ul Lymphocytes # 2.510^3/ul Monocytes # 1.310^3/ul Eosinophils # 0.110^3/ul Basophils # 0.010^3/ul Nucleated Red Blood Cells # 0.010^3/ul Sodium Level 138mmol/L Potassium Level 4.0mmol/L Chloride Level 103mmol/L Carbon Dioxide Level 23mmol/L Anion Gap 16 Blood Urea Nitrogen 15mg/dl Creatinine 0.80mg/dl Glucose Level 112mg/dl Calcium Level 9.5mg/dl Bedside Glucose 101mg/dL Current Medications Medications (Trade) Dose Ordered Sig/Shante Route PRN Reason Start Time Stop Time Status Last Admin Dose Admin Dexamethasone (Decadron) 10 mg ONCE ONCE IV 02/06/17 00:00 02/06/17 00:02 DC 02/06/17 00:28 Ketorolac Tromethamine (Toradol) 30 mg ONCE STAT IV 02/06/17 00:00 02/06/17 00:03 DC 02/06/17 00:31 IV Flush 10 ml 10 ml STK-MED ONCE .ROUTE 02/06/17 00:21 02/06/17 00:22 DC Sodium Chloride (NS) 100 ml @ ud STK-MED ONCE .ROUTE 02/06/17 00:21 02/06/17 00:22 DC Iohexol 150 ml 150 ml STK-MED ONCE .ROUTE 02/06/17 00:21 02/06/17 00:22 DC Ceftriaxone Sodium (Rocephin) 50 ml @ 100 mls/hr ONCE ONCE IVPB 02/06/17 02:30 02/06/17 02:59 DC 02/06/17 02:27 Procedures/MDM ED COURSE: The patient was stable throughout ED course. I kept the patient and/or family informed of laboratory and diagnostic imaging results throughout the ED course. MEDICATIONS GIVEN: Toradol, Decadron, Rocephin Patient tolerated medication well with no adverse reactions. MEDICAL DECISION MAKING: This is a 41-year-old male who presents to the ED for concerns of throat pain 1 week. Patient does admit to history of a peritonsillar abscess in the past. Patient is diabetic and states he takes insulin daily. Vital signs were reviewed. Patient was afebrile. Patient was not hypoxic. Oropharynx exam revealed bilateral 2+ tonsillar swelling with exudates noted on the patient's left tonsil. Oropharynx was open, no kissing tonsils noted. The patient did not have trismus, muffled voice, uvula deviation, unilateral tonsillar swelling , or drooling. Given significant tonsillar swelling, patient was given Decadron here in the ED. I explained to the patient that he should monitor his glucose levels closely given the side effects of Decadron. Patient felt as if his symptoms were similar to when he had a peritonsillar abscess past. Blood work was obtained. Patient's WBC count was noted to be slightly elevated at 13.5. BMP showed no evidence of electrolyte abnormalities, severe acidosis, alkalosis, renal failure. Patient's glucose level was within normal limits. Initially a CT scan of the neck with IV contrast was obtained. I was notified by CT staff that prior to patient receiving CT scan, that the IV contrast injector malfunctioned and CT scans with contrast were unavailable at this time. I apologized and explained this to the patient and his family. I explained to the patient that it may be difficult to visualize an abscess without the availability of contrast. I did offer a noncontrast CT to the patient however he declined it. Patient stated he did not want to receive scan/ radiation today and then again in the future if a CT with contrast was needed at a later date. I also explained to the patient that his findings of bilateral tonsillar swelling are less likely to represent a peritonsillar abscess, however unable to definitively rule out with CT scan. Patient was given a dose of Rocephin here in the ED as well. Patient tolerated Rocephin with no adverse effects. Patient did report improvement in symptoms after receiving Decadron as well as Toradol. At this time, the patient's presentation is most consistent with bacterial tonsillitis. Low suspicion for epiglottitis, retropharyngeal abscess, Jomar's angina, dental abscess, meningitis, pneumonia or sepsis. Unable to definitively rule out peritonsillar abscess at this time. Patient was nontoxic, ekv-aim-ocvedosts prior to discharge. Patient was advised to return in 2 days for a recheck. At that time , will consider CT scan with contrast depending on patient's symptoms. Patient was advised to return sooner for any new or worsening symptoms. Patient understood and agreed to this plan. PRESCRIPTIONS: Ibuprofen, amoxicillin DISCHARGE: At this time, patient is stable for discharge and outpatient management. Copy of all blood work was given to the patient. I have instructed the patient to follow-up with his/her primary care physician in 1-2 days. I have discussed with the patient the possibility of needing to see a specialist for further workup and imaging studies if symptoms persist. I have instructed the patient to promptly return to the ER for any new or worsening symptoms including increased pain, fever, nausea, vomiting, weakness or LOC. The patient and/or family expressed understanding of and agreement with this plan. All questions were answered. Home care instructions were provided. Patients blood pressure was elevated (>120/80) but appears stable without evidence of hypertensive emergency, hypertensive urgency or end-organ failure. I had discussion with the patient about the risks of hypertension. I have advised the patient to follow up with his/her primary care physician for outpatient monitoring and treatment for hypertension in 2-3 days. I have instructed the patient to return to the ER for any new or worsening symptoms including chest pain, shortness of breath, headache, blurred vision, confusion, nausea, vomiting or LOC. Disclaimer: Inadvertent spelling and grammatical errors are likely due to EHR/ dictation software use and do not reflect on the overall quality of patient care. Also, please note that the electronic time recorded on this note does not necessarily reflect the actual time of the patient encounter. Departure Diagnosis: Primary Impression: Acute bacterial tonsillitis Condition: Stable Patient Instructions: Pharyngitis, Strep (Presumed) Referrals: [facility] YOU HAVE RECEIVED A MEDICAL SCREENING EXAM AND THE RESULTS INDICATE THAT YOU DO NOT HAVE A CONDITION THAT REQUIRES URGENT TREATMENT IN THE EMERGENCY DEPARTMENT. FURTHER EVALUATION AND TREATMENT OF YOUR CONDITION CAN WAIT UNTIL YOU ARE SEEN IN YOUR DOCTORS OFFICE WITHIN THE NEXT 1-2 DAYS. IT IS YOUR RESPONSIBILITY TO MAKE AN APPOINTMENT FOR FOLOW-UP CARE. IF YOU HAVE A PRIMARY DOCTOR --you should call your primary doctor and schedule an appointment IF YOU DO NOT HAVE A PRIMARY DOCTOR YOU CAN CALL OUR PHYSICIAN REFERRAL HOTLINE AT IF YOU CAN NOT AFFORD TO SEE A PHYSICIAN YOU CAN CHOSE FROM THE FOLLOWING FORMERLY [facility] CLINICS [facility] [address] [facility] [address] [facility] [facility] [address] [facility] [address] [facility] [facility] [address] [facility]. [facility]. [address] [facility]. [facility] YOU HAVE RECEIVED A MEDICAL SCREENING EXAM AND THE RESULTS INDICATE THAT YOU DO NOT HAVE A CONDITION THAT REQUIRES URGENT TREATMENT IN THE EMERGENCY DEPARTMENT. FURTHER EVALUATION AND TREATMENT OF YOUR CONDITION CAN WAIT UNTIL YOU ARE SEEN IN YOUR DOCTORS OFFICE WITHIN THE NEXT 1-2 DAYS. IT IS YOUR RESPONSIBILITY TO MAKE AN APPOINTMENT FOR FOLOW-UP CARE. IF YOU HAVE A PRIMARY DOCTOR --you should call your primary doctor and schedule and appointment IF YOU DO NOT HAVE A PRIMARY DOCTOR YOU CAN CALL OUR PHYSICIAN REFERRAL HOTLINE AT . IF YOU CAN NOT AFFORD TO SEE A PHYSICIAN YOU CAN CHOSE FROM THE FOLLOWING FORMERLY [facility] INSTITUTIONS: [facility] [address] [place] [address] [facility] [address] [place], [place] [id number] [place] [address] [address] [place] [address] Additional Instructions: Return in 2 days for recheck. Return sooner for any new or worsening symptoms. Monitor blood glucose closely. Call your primary care doctor TOMORROW for an appointment during the next 1-2 days.See the doctor sooner or return here if your condition worsens before your appointment time. BETH VARELA PA-C Feb 06, 2017 02:56
[2017-02-06 03:20] VITALS: BP 121/74; PULSE 66; RESP 20; TEMP 97.6
== END 2017-02-06 03:30 | disposition home or self-care (01) ==
LOC: FTE 21:10
DX: J03.90 Acute tonsillitis, unspecified (principal); E11.9 Type 2 diabetes mellitus without complications; Z79.4 Long term (current) use of insulin; Z79.84 Long term (current) use of oral hypoglycemic drugs
CPT/HCPCS: 80048; 82962; 85025; 96374; 96375; 99284; J0696; J1100; J1885; Q9967